=== PATIENT | female | born 1965 | race Caucasian/White ===

== ENCOUNTER 2017-10-11 22:00 | Emergency (ER) | payer BC ==
[~2017-10-11] VITALS: Ht 152.4 cm; Wt 83.9 kg
[~2017-10-11 22:00] MED LIST: ALBU1AER9 INH
[2017-10-11 22:03] VITALS: BP 165/97; PULSE 87; TEMP 36.4; O2SAT 98; Ht 152.4 cm; Wt 83.9 kg
[2017-10-11] MEDS ORDERED: AMOX875T3 PO (22:28)
[2017-10-11] MEDS ORDERED: AMX875 PO (22:30)
--- NOTE | 2017-10-11 23:44 | EMERGENCY ROOM VISIT NOTE ---
History Report prepared by Irina: James Del Real Under the Supervision of: Dr. Damien Enrique M.D. First contact with patient: 22:19 Chief Complaint: RASH Stated Complaint: RASH ON LEFT LEG History of Present Illness The patient is a 52 year old female who presents to the Emergency Room with complaints of a worsening rash on the inside of the left calf that began 10 days ago. The patient has seen by a physician for this rash and was prescribed Amoxicillin on the , 6 days ago. The patient states that her leg started to get significantly better after starting the Amoxicillin, but it has developed two blisters. The area is very itchy as well, but she has not had any fevers. She continued to mention that she started to put a "Triple Antibiotic Cream" on the leg. She has no history of MRSA. Source of History: patient Onset: 10 days HEEL W[employer] Position: leg (left) Quality: other (Rash/blister) Timing: worsening Modifying Factors (Relieving): other (Amoxicillin) Associated Symptoms: No fevers, No chest pain, No vomiting, No abdominal pain Note: Rash itches Review of Systems See HPI for pertinent positives & negatives. A total of 10 systems reviewed and were otherwise negative. Past Medical & Surgical Medical Problems: (1) Hypertension (2) Migraines Surgical Problems: (1) History of Family History Cancer Diabetes mellitus Hypertension Social History Smoking Status: Never Smoker Alcohol Use: occasionally Drug Use: none Marital Status: Housing Status: lives with family Occupation Status: employed Current/Historical Medications Scheduled Amoxicillin (Amoxil), 1 TAB PO BID Amoxicillin (Amoxicillin), 875 MG PO BID Allergies Coded Allergies: No Known Allergies (Unverified , OTHER, 10/11/17) Physical Exam Vital Signs Date Time Temp Pulse Resp B/P (MAP) Pulse Ox O2 Delivery O2 Flow Rate FiO2 10/11/17 22:03 36.4 87 18 165/97 98 Room Air Physical Exam Constitutional: Vital signs reviewed. Eyes: Pupils are equal round reactive to light. Conjunctiva are noninjected. ENT: Pharynx is clear without erythema or exudate. Mucous membranes are moist. Neck supple without meningeal signs. Respiratory: Clear to auscultation bilaterally. Breath sounds are equal bilaterally. Cardiovascular: Regular rate and rhythm. No rubs or gallops. GI: Soft, nondistended and nontender. Bowel sounds are present. Musculoskeletal: No peripheral edema. See below. Integumentary: No cyanosis. The left calf: There is a small 6 cm area of very mild erythema with 2 small clear blisters. No discharge. No tenderness to palpation. Neurological: The patient is awake and alert. No focal deficits. Psychiatric: Normal affect. Medical Decision & Procedures ED Course 2220: The patient was evaluated in room B9. A complete history and physical exam was performed. 2231: After discussion with the patient, I have instructed her to stop using the triple antibiotic cream, as she may be having a reaction to this. She will use some Benadryl cream on the area. The patient is in agreement. She will be discharged home. Medical Decision This is a 52-year-old female who presents with a rash to her left leg. Differential diagnosis could include cellulitis, allergic reaction, contact dermatitis, MRSA. I did perform a limited focused review of portions of the patient's old chart on the electronic medical record. The patient has had no recent pertinent visits to this hospital. I did evaluate the patient as noted above. The patient developed a cellulitis and was placed on amoxicillin by her primary care physician. Her cellulitis has improved considerably per her report. She is here today because she has developed significant itching to the wound as well as the development of to clear blisters. She was concerned about worsening infection. She denies any systemic symptoms such as fever or vomiting. On examination she has very mild cellulitis to the area with no tenderness. There are 2 clear blisters. I did obtain a culture of 1 of the ruptured blisters. She does not have any eschar or history of MRSA. She does state that she has been using triple antibiotic cream and I suspect that she has developed a allergic reaction to this cream. She was advised to stop using cream and to wash the area with soap and water. She will take Benadryl for the itching. I did give her a prescription for 7 more days of amoxicillin as she does appear to have some very mild cellulitis to left and she only had 1 pill left in her prior prescription. She was advised to follow-up closely with her doctor. She was discharged in good condition. She was given return instructions as outlined below. Medication Reconcilliation Current Medication List: was personally reviewed by me Blood Pressure Screening Patient's blood pressure: Elevated blood pressure Blood pressure disposition: Referred to PCP Impression Primary Impression: Contact dermatitis Additional Impression: Cellulitis Scribe Attestation The scribe's documentation has been prepared under my direct and personally reviewed by me in its entirety. I confirm that the note above accurately reflects all work, treatment, procedures, and medical decision making performed by me. Departure Information Dispostion Home / Self-Care Prescriptions Amoxicillin (AMOXIL) 875 Mg Tab 1 TAB PO BID for 7 Days, #14 TAB Prov: Damien Enrique M.D. 10/11/17 Referrals No Doctor, Assigned (PCP) Forms HOME CARE DOCUMENTATION FORM, IMPORTANT VISIT INFORMATION, WORK / SCHOOL INSTRUCTIONS Patient Instructions My [facility] Additional Instructions You have been examined and treated today on an emergency basis only. This is not a substitute for, or an effort to provide, complete comprehensive medical care. It is impossible to recognize and treat all injuries or illnesses in a single emergency department visit. It is therefore important that you follow up closely with your physician. Call as soon as possible for an appointment. Return for worsening symptoms or if you develop fever, vomiting, or any other concerning symptoms. Wash the area with soap and water. Avoid putting any creams on the area. Problem Qualifiers Primary Impression: Contact dermatitis Contact dermatitis type: allergic Contact dermatitis trigger: drugs in contact with skin Qualified Codes: L23.3 - Allergic contact dermatitis due to drugs in contact with skin Additional Impression: Cellulitis Site of cellulitis: extremity Site of cellulitis of extremity: lower extremity Laterality: left Qualified Codes: L03.116 - Cellulitis of left lower limb
== END 2017-10-11 22:39 | disposition home or self-care (01) ==
LOC: C.EDB 22:02
DX: L03.116 Cellulitis of left lower limb (principal); L23.3 Allergic contact dermatitis due to drugs in contact with skin; I10 Essential (primary) hypertension; Z83.3 Family history of diabetes mellitus; Z82.49 Family history of ischemic heart disease and other diseases of the circulatory system